=== PATIENT | male | born 1960 | race Caucasian/White ===

== ENCOUNTER 2017-10-06 11:02 | Inpatient (IN) | payer OTHER ==
--- NOTE | 2017-10-06 10:37 | PDHPUP ---
History & Physical Update H&P update statement: This history and physical update is based on an assessment of the patient which was completed after admission or registration (within 24 hours), but prior to the surgery/procedure. H&P update: H&P reviewed & patient examined, no change in patient's condition since H&P completed
[2017-10-06] MEDS ORDERED: PROTAMINE SULFATE 50 MG/5 ML VIAL IVP ONE (11:20)
[2017-10-06] MEDS ORDERED: THROMBIN (BOVINE) 20,000 UNIT SPRAY TP ONE (11:20)
[2017-10-06] MEDS ORDERED: BACITRACIN ZINC 14.2 GM OINTTUBE TP ONE (11:20)
[2017-10-06] MEDS ORDERED: BUPIVACAINE 0.5% 30 ML SDV ONE (11:21)
[2017-10-06] MEDS ORDERED: MIDAZOLAM 2 MG/2 ML VIAL ONE (12:05)
[2017-10-06] MEDS ORDERED: PROPOFOL 200 MG/20 ML VIAL ONE (12:08)
[2017-10-06] MEDS ORDERED: REMIFENTANIL HCL 1 MG VIAL ONE (12:08)
[2017-10-06] MEDS ORDERED: fentaNYL 250 MCG/5 ML INJ ONE (12:08)
[2017-10-06] MEDS ORDERED: PROPOFOL/EMULSION 500 MG/50 ML BOTTLE IV ONE (12:08)
[2017-10-06] MEDS ORDERED: LIDOCAINE 2% 5 ML SDV ONE (12:09)
[2017-10-06] MEDS ORDERED: niCARdipine/NACL/200 ML BAG IV ONE (12:11)
[2017-10-06] MEDS ORDERED: ceFAZolin 2 GM/SWFI 2 GM/20 ML SYR IVP ONE (12:12)
[2017-10-06] MEDS ORDERED: LR 1,000 ML IV ONE (12:14)
[2017-10-06] MEDS ORDERED: ceFAZolin 2 GM/SWFI 20 ML SYR IVP ONE (12:14)
[2017-10-06 12:15] LABS: PLATELET COUNT 217 10^3/uL (150-400)
[2017-10-06] MEDS ORDERED: HEPARIN 10,000 UNIT/10 ML MDV (1,000 UNIT/ML) ONE (12:20)
[2017-10-06] MEDS ORDERED: DEXAMETHASONE 4 MG/ML VIAL ONE (12:38)
[2017-10-06] MEDS ORDERED: GLYCOPYRROLATE 0.2 MG/1 ML VIAL ONE ×2 (13:11)
[2017-10-06] MEDS ORDERED: MIDAZOLAM 2 MG/2 ML VIAL IVP ONE (13:20)
--- NOTE | 2017-10-06 13:20 | PDANEPAE ---
ANE History of Present Illness right CEA ANE Past Medical History - Cardiovascular History Hx Hypertension: Yes Hx Arrhythmias: No Hx Chest Pain: No Hx Coronary Artery / Peripheral Vascular Disease: Yes Hx CHF / Valvular Disease: No Hx Palpitations: No Cardiovascular History Comment: ANGIOGRAM/CABG X4 FOR ELEVATED CALCIUM AND ABNORMAL STRESS TEST AT THE TIME. NO CHEST PAIN OR SOB SINCE CABG - 2012. NO CURRENT CHRONOMETER ADJUSTER - Pulmonary History Hx COPD: No Hx Asthma/Reactive Airway Disease: No Hx Recent Upper Respiratory Infection: No Hx Oxygen in Use at Home: No Hx Sleep Apnea: No Sleep Apnea Screening Result - Last Documented: Positive - Neurologic History Hx Cerebrovascular Accident: No Hx Seizures: No Hx Dementia: No - Endocrine History Hx Diabetes: No - Renal History Hx Renal Disorders: No - Liver History Hx Hepatic Disorders: No - Neurological & Psychiatric Hx Hx Neurological and Psychiatric Disorders: No - Cancer History Hx Cancer: No - Congenital Disorder History Hx Congenital Disorders: No - Other Health History Other Health History: HX OSTEOMYELITIS L HEEL - Chronic Pain History Chronic Pain: No - Surgical History Prior Surgeries: 2013 ANGIOGRAM/CABG X4. L LEG AHMET - 2008. CERVICAL FUSION 1995. WRIST AYSE CYST & BONE FX/CARPAL TUNNEL 2017. RHINIOPLASTY ANE Review of Systems Review of Systems: - Exercise capacity METS (RN): 4 METS ANE Patient History - Allergies Allergies/Adverse Reactions: No Known Allergies Allergy (Verified 10/06/17 12:14) - Home Medications Home medications: home medication list seen and reviewed Home Medications: Aspirin [Aspirin 325 mg (*)] 325 mg PO DAILY 10/02/17 [Last Taken 10/05/17] Atorvastatin Calcium [Lipitor 40 mg (*)] 80 mg PO DAILY 10/02/17 [Last Taken 03/16] Lisinopril [Zestril 10 mg (*)] 10 mg PO DAILY 10/02/17 [Last Taken 10/05/17] Metoprolol Tartrate [Lopressor 50 mg (*)] 50 mg PO BID 10/02/17 [Last Taken 04/15] - NPO status NPO Since - Liquids (Date): 10/06/17 NPO Since - Liquids (Time): 09:00 NPO Since - Solids (Date): 10/05/17 NPO Since - Solids (Time): 19:00 - Smoking Hx Smoking Status: Former smoker - Family Anes Hx Family Hx Anesthesia Complications: NEG ANE Labs/Vital Signs - Labs Result Diagrams: 10/06/17 11:50 10/06/17 11:50 - Vital Signs Blood Pressure: 116/73 Heart Rate: 44 Respiratory Rate: 16 O2 Sat (%): 97 Height: 175.26 cm Weight: 74.843 kg ANE Physical Exam - Airway Neck exam: FROM, spinal fusion Mallampati Score: Class 2 Mouth exam: normal dental/mouth exam - Pulmonary Pulmonary: no respiratory distress - Cardiovascular Cardiovascular: regular rate and rhythym - ASA Status ASA Status: III ANE Anesthesia Plan Anesthesia Plan: general endotracheal anesthesia Lines/Monitors: arterial line Specialized Airway: video laryngoscope Urgent/Emergent Case: Anes rain completed preop but documented later for safe timely pt care
--- NOTE | 2017-10-06 13:27 | POSTANESTH ---
Post Anesthetic Evaluation Cardiovascular Status: Normal, Stable Respiratory Status: Normal, Stable Level of Consciousness/Mental Status: Can Participate in Eval Pain Control: Adequate, Prn Tx Ordered Nausea/Vomiting Control: Adequate, Prn Tx Ordered Complications Possibly Related to Anesthesia: None Noted
[2017-10-06] MEDS ORDERED: SUGAMMADEX SODIUM 200 MG/2 ML VIAL IVP ONE (13:55)
[2017-10-06] MEDS ORDERED: ONDANSETRON 4 MG/2 ML VIAL ONE (13:57)
[2017-10-06] MEDS ORDERED: HYDROmorphONE/DILAUDID 2 MG/ML INJ IVP PRN (14:06)
[2017-10-06] MEDS ORDERED: PROMETHAZINE HCL 25 MG/ML INJ IVP PRN (14:06)
[2017-10-06] MEDS ORDERED: ALBUTEROL 3 ML DEYVIAL IH PRN (14:06)
[2017-10-06] MEDS ORDERED: NALOXONE HCL 0.4 MG/ML INJ IVP PRN (14:06)
[2017-10-06] MEDS ORDERED: ACETAMINOPHEN 500 MG TAB PO PRN (14:06)
[2017-10-06] MEDS ORDERED: fentaNYL 100 MCG/2 ML INJ IVP PRN (14:06)
[2017-10-06] MEDS ORDERED: oxyCODONE IR 5 MG TAB PO PRN (14:06)
[2017-10-06] MEDS ORDERED: HYDROCODONE/APAP 5/325 TAB PO PRN (14:06)
[2017-10-06] MEDS ORDERED: ONDANSETRON 4 MG/2 ML VIAL IVP PRN ×2 (14:06→14:07)
[2017-10-06] MEDS ORDERED: LABETALOL HCL 5 MG/ML 20 ML MDV IVP PRN (14:06)
[2017-10-06] MEDS ORDERED: LR 500 ML IV PRN (14:06)
[2017-10-06] MEDS ORDERED: HYDROmorphone HCL/NS 0.5 MG/ML SYR IVP PRN (14:07)
[2017-10-06] MEDS ORDERED: OXYCODONE/APAP 5/325 TAB PO PRN (14:07)
[2017-10-06] MEDS ORDERED: ENALAPRILAT DIHYDRATE 1.25 MG/ML VIAL IVP PRN (14:11)
--- NOTE | 2017-10-06 14:14 | POSTOPPROG ---
Post Op Note Date of Operation: 10/06/17 Surgeon: Vidal Egan Car Top Bolter: Mary Alice Monreal Anesthesiologist: Hernan Santos Anesthesia: GET(General Endotracheal) Pre-op Diagnosis: B critical carotid stenosis Post-op Diagnosis: same Procedure: R CEA c EEG monitoring using shunt and patch closure, cervical LN bx Findings: tight plaque, >90%, small internal carotid artery, awoke moving all extremi Inf/Abcess present in the surg proc area at time of surgery?: No EBL: 50-100 Complications: none Specimen(s): plaque and cervical nodes to path
[2017-10-06] MEDS ORDERED: D5W 1/2 NS 1,000 ML IV SCH (14:15)
--- NOTE | 2017-10-06 14:47 | GOP ---
[f rep st] OPERATIVE REPORT DATE OF OPERATION: 10/06/2017 SURGEON: Vidal Egan MD MODERATE NEEDS TEACHER: Mary Alice Monreal P.A.-C. ANESTHESIOLOGIST: Hernan Santos M.D. PREOPERATIVE DIAGNOSIS: Critical right carotid stenosis. POSTOPERATIVE DIAGNOSIS: Critical right carotid stenosis.cervical adenopathy PROCEDURE PERFORMED: Right carotid endarterectomy with EEG monitoring.Deep cervical node biopsy FINDINGS: The patient was found to have extremely tight origin of his internal carotid artery with a very small internal carotid artery, which dilated up quite well after restoring flow. He had no EEG changes. He awoke moving all extremities, neurologically intact. ESTIMATED BLOOD LOSS: Less than 50 mL. DESCRIPTION OF PROCEDURE: The patient was taken to the operating room where he received satisfactory general endotracheal anesthesia by Dr. Santos. He was placed in the supine position and prepped and draped in the usual sterile fashion. He had been systemically heparinized prior to induction of general anesthesia. After being prepped and draped, the incision was made along the anterior border of the sternocleidomastoid muscle, and dissection extended down through the platysma, subcutaneous tissue and the superficial fascia. The common facial vein was multiply ligated and divided. This exposed the carotid arterial tree. The hypoglossal nerve was identified. It was mobilized slightly by dividing some branches, tethering it down. This was done with hemoclips exposing the upper reaches of the internal carotid artery. The internal carotid, external carotid and common carotid arteries were all dissected free and controlled with vessel loops, as was the inferior thyroid artery. After adequate exposure, the patient was given additional heparin. After adequate circulation time, the vessels were occluded with the vessel loops and then an arteriotomy was made in the common carotid artery, extended up through the very tight plaque with almost no opening through the plaque into the carotid artery. The plaque was short and well localized. There was adequate backflow from the internal carotid with no EEG changes. Expeditious endarterectomy was then done, removing the plaque with a good feathered end. A shunt was then placed at that moment, restoring blood flow, and the arteriotomy was closed with a Dacron patch with a running Hemashield 7 suture. The shunt was removed just before completion of the suture line. All vessels were flushed. The suture line was completed and flow was first established through the external carotid and then through the internal carotid. The suture line appeared to be hemostatic. There were no difficulties. Heparin was reversed with protamine. Wounds were closed in layers using 3-0 Vicryl for the cervical fascia, 3-0 Vicryl platysma and subcutaneous tissue, 4- 0 Monocryl subcuticular stitch for the skin. The superficial layers were infiltrated with 0.5% Marcaine. The wound had been sprayed with some topical thrombin as well. He tolerated the procedure quite well and was taken to the recovery room in satisfactory condition. COMPLICATIONS: None. /[id number]/MODL MTDD
--- NOTE | 2017-10-06 15:02 | PDMN ---
Medical Necessity Medical necessity: IP surgery per [facility] cpt 53309 R CEA
[2017-10-06] MEDS ORDERED: LABETALOL HCL 5 MG/ML 20 ML MDV ONE (15:12)
[2017-10-06] MEDS ORDERED: ENALAPRILAT DIHYDRATE 1.25 MG/ML VIAL ONE (15:15)
[2017-10-06] MEDS ORDERED: ACETAMINOPHEN 325 MG TAB PO PRN (17:04)
[2017-10-06] MEDS: METOPROLOL TARTRATE 50 MG TAB PO SCH (21:06)
[2017-10-06] MEDS ORDERED: ATORVASTATIN CALCIUM 40 MG TAB PO SCH (21:30)
[2017-10-07 06:13] VITALS: BP 128/96
[2017-10-07] MEDS: METOPROLOL TARTRATE 50 MG TAB PO SCH (07:53)
--- NOTE | 2017-10-07 08:17 | SOAPPROG ---
SOAP Progress Note Assessment/Plan: Assessment: postop doing well, wound ok, neuro intact Plan:home today / left cea next week or 2 10/07/17 08:15 Objective: Vital Signs Temp Pulse Resp BP Pulse Ox 36.6 C 75 17 128/96 H 99 10/07/17 06:00 10/07/17 07:53 10/07/17 07:00 10/07/17 07:53 10/07/17 07:00 Laboratory Results 10/06/17 11:50 10/06/17 11:50 10/06/17 10/07/17 10/08/17 05:59 05:59 05:59 Intake Total 1500 Output Total 100 Balance 1400 ICD10 Worksheet Patient Problems: Problems Problem Status Onset Carotid stenosis, bilateral Acute - ICD10 Problem Qualifiers (1) Carotid stenosis, bilateral
[2017-10-07] MEDS ORDERED: ASPIRIN 325 MG TAB PO SCH (09:00)
[2017-10-07] MEDS ORDERED: ATORVASTATIN CALCIUM 40 MG TAB PO SCH (09:00)
[2017-10-07] MEDS ORDERED: LISINOPRIL 10 MG TAB PO SCH (09:00)
[2017-10-08] MEDS ORDERED: ENOXAPARIN 40 MG/0.4 ML SYR SC SCH (09:00)
== END 2017-10-07 12:59 | disposition home or self-care (01) | DRG 39 ==
LOC: F2W 11:02 → F2N 15:55
PROVIDERS: ADMIT Surgery; ATTEND Surgery
PROC: 07B10ZX Excision of Right Neck Lymphatic, Open Approach, Diagnostic (ICD-10-PCS; principal; 2017-10-06 12:15)
PROC: 03CH0Z6 (ICD-10-PCS; principal; 2017-10-06 12:15)
DX: I65.21 Occlusion and stenosis of right carotid artery (principal); R59.0 Localized enlarged lymph nodes; I10 Essential (primary) hypertension; E78.00 Pure hypercholesterolemia, unspecified; I25.10 Atherosclerotic heart disease of native coronary artery without angina pectoris; Z95.1 Presence of aortocoronary bypass graft; Z79.82 Long term (current) use of aspirin; Z98.1 Arthrodesis status
CPT/HCPCS: C1768; J0690; J1100; J1644; J2250; J2405; J2704; J2720; J3010